=== PATIENT | female | born 1960 | race Caucasian/White ===

== ENCOUNTER 2019-07-01 00:32 | Emergency (ER) | payer MEDICARE ==
[~2019-07-01] VITALS: Ht 157.5 cm; Wt 55.8 kg
[2019-07-01 00:37] VITALS: BP 143/78
[2019-07-01] MEDS ORDERED: MOTRIN PO STA (00:59)
[2019-07-01] MEDS ORDERED: FLEXERIL PO STA (00:59)
[2019-07-01] MEDS ORDERED: NORCO 7.5MG PO STA (00:59)
[2019-07-01 01:00] VITALS: BP 127/73
--- NOTE | 2019-07-01 01:00 | ER.PDOC ---
General Chief Complaint: Back Pain/Injury Stated Complaint: SEVERE BACK PAIN Time seen by MD: 00:53 Source: patient History of Present Illness Initial Comments patient states she awoke yesterday with unrelenting pain between her shoulder blades (worse with UE movement) that started after wrestling her 93 pound basset hound the day before; there is no radiation of pain, no numbness weakness or tingling Timing/Duration: yesterday Severity/Quality: severe 1 - pain and spasm, worse right paraspinal Method of Injury: other (dragging 93 lb dog by collar across street) Associated Symptoms: denies symptoms Allergies: Coded Allergies: codeine (Unverified Allergy, Unknown, ITCH, 10/20/17) hydrocodone (Verified Adverse Reaction, Mild, ITCHING, 03/05/13) Past Medical History Medical History: diabetes, high cholesterol, hypertension Surgical History: cardiac cath, hysterectomy, stent Social History Alcohol Use: occassionally Drug Use: none Review of Systems Constitutional: no symptoms reported EENTM: no symptoms reported Respiratory: no symptoms reported Cardiovascular: no symptoms reported Gastrointestinal: no symptoms reported Musculoskeletal: see HPI, muscle pain (paraspinal pain/spasm, right worse) Skin: no symptoms reported Physical Exam General Appearance: No Apparent Distress Neck: Non-Tender, Normal Alignment Cardiovascular/Respiratory: Regular Rate, Rhythm, Normal Breath Sounds, No Respiratory Distress Gastrointestinal: Normal Bowel Sounds Back: No CVA Tenderness, No Vertebral Tenderness, Muscle Spasm (right paraspinal T5-T9 region) Extremities: No Evidence of Injury, Normal Range of Motion, Non-Tender Neuro/Psych: Alert, mood/effect nml, No Motor/Sensory Deficits Skin: Normal Color, Warm/Dry Results/Orders Results/Orders Orders - SENTHIL GARCÍA DO Hydrocodone/Acetaminophen (Henrietta 7.5mg) (07/01/19 00:59) Cyclobenzaprine Hcl (Flexeril) (07/01/19 00:59) Ibuprofen (Motrin) (07/01/19 00:59) Vital Signs Date Time Temp Pulse Resp B/P (MAP) Pulse Ox O2 Delivery O2 Flow Rate FiO2 07/01/19 00:37 98.3 92 18 96 07/01/19 00:37 98.3 92 18 07/01/19 00:37 98.3 92 18 143/78 (99) 96 Room Air Course Sepsis Screening Results: Posi: POSITIVE SEPSIS RISK Vitals & review Data Vital Sign - Last 24 Hours 07/01/19 07/01/19 07/01/19 00:37 00:37 00:37 Temp 98.3 98.3 98.3 Pulse 92 92 92 Resp 18 18 18 B/P (MAP) 143/78 (99) Pulse Ox 96 96 O2 Delivery Room Air Current Medications Medications (Trade) Dose Ordered Sig/Bhavik PRN Reason Start Time Stop Time Status Last Admin Acetaminophen/ Hydrocodone Bitart (Henrietta 7.5mg) 1 each STAT STAT 07/01/19 00:59 07/01/19 01:00 UNV Cyclobenzaprine HCl (Flexeril) 10 mg STAT STAT 07/01/19 00:59 07/01/19 01:00 UNV Ibuprofen (Motrin) 800 mg STAT STAT 07/01/19 00:59 07/01/19 01:00 UNV O2 Sat by Pulse Oximetry: 96 Departure Time of Disposition: 01:07 Disposition: 01 HOME, SELF-CARE Impression: Primary Impression: Thoracic back sprain Condition: Stable Patient Instructions: Back Exercises, Back Injury Prevention, Back Pain, Adult Referrals: ALMA BORRERO MD (PCP) PRIMARY CARE PROVIDER Additional Instructions: Follow up with Dr. Borrero next week. Rest. Ice to regions of pain 15 min/hour. Take your medication as prescribed when needed for pain/spasm. Return to ER if you experience severe/uncontrolled pain or any weakness to arms/hands or for any other emergent concerns. Duration or Time Spent with Pa: 15 min Problem Qualifiers Primary Impression: Thoracic back sprain Encounter type: initial encounter Qualified Codes: S23.9XXA - Sprain of unspecified parts of thorax, initial encounter SENTHIL GARCÍA DO Jul 01, 2019 01:00
[2019-07-01] MEDS ORDERED: MOTRIN ONE (01:02)
[2019-07-01] MEDS ORDERED: FLEXERIL ONE (01:02)
[2019-07-01] MEDS ORDERED: NORCO 7.5MG PO ONE (01:03)
[2019-07-01] MEDS ORDERED: ULTRAM ONE ×2 (01:06→01:07)
[2019-07-01] MEDS ORDERED: ULTRAM PO STA (01:06)
== END 2019-07-01 01:20 | disposition home or self-care (01) ==
LOC: ER 00:32
DX: S23.3XXA Sprain of ligaments of thoracic spine, initial encounter (principal); E11.9 Type 2 diabetes mellitus without complications; E78.00 Pure hypercholesterolemia, unspecified; I10 Essential (primary) hypertension; Z79.1 Long term (current) use of non-steroidal anti-inflammatories (NSAID); Z88.5 Allergy status to narcotic agent; Z90.710 Acquired absence of both cervix and uterus; W22.8XXA Striking against or struck by other objects, initial encounter; Y93.72 Activity, wrestling; Y92.89 Other specified places as the place of occurrence of the external cause; Y99.8 Other external cause status
CPT/HCPCS: 99284

== ENCOUNTER → 2021-01-06 | Outpatient (CLI) | payer MEDICARE ==
[~2021-01-06] MED LIST: ASPI-929 PO; LEXISCAN IV STA; LISI20TA21 PO; METF500T17 PO; ROSU20TA2 PO; VENL150C PO; VENL37.5 PO
--- NOTE | 2021-01-06 22:44 | STRESS ---
DATE OF SERVICE: 01/06/2021 DICTATOR NAME: TRENT PUGACHRISTINEThomas CARDIAC STRESS TEST INDICATION: Chest pain. FINDINGS: Baseline EKG shows normal sinus rhythm with left posterior fascicular block. Stress EKG shows normal sinus rhythm, unchanged from baseline. At the end of recovery, EKG shows normal sinus rhythm, unchanged from baseline. Baseline heart rate is noted to be 81 beats per minute and allison to 90 beats per minute during stress. At the end of recovery, the heart rate was noted to be 98 beats per minute. Baseline blood pressure was 123/70 and remained the same during stress. At the end of recovery, the blood pressure was 124/64. Blood pressure and heart rate were appropriate for stress. There were no significant symptoms noted during stress. There were no arrhythmias noted during stress. EKG portion of stress test is negative for myocardial ischemia. Nuclear images were obtained with a rest dose of 10.82 mCi technetium 99 sestamibi and stress dose of 32 mCi technetium 99 sestamibi. Nuclear images reveal homogeneous tracer distribution across all wall segments in both rest and stress images, with no evidence of myocardial ischemia or infarction. Left ventricular ejection fraction is 56%. EDV is 37 mL, ESV 16 mL. The left ventricle is normal in size. Gated motion images shows normal wall motion across all segments of the left ventricle. TID is 2.9. There is no evidence of diaphragmatic attenuation artifact. IMPRESSION: 1. Normal myocardial perfusion imaging with no evidence of myocardial ischemia or infarction. 2. Left ventricular ejection fraction of 56%. 3. This is a negative study. Daniel POSADA D.O. DR: RAYA TID: [id number] RECEIPT: [id number]
== END | disposition home or self-care (01) ==
LOC: RAD 09:25
PROVIDERS: ATTEND Internal Medicine Interventional Cardiology
DX: I10 Essential (primary) hypertension (principal); R07.9 Chest pain, unspecified
CPT/HCPCS: 78452; 93017; 93306; A9500; J2785

== ENCOUNTER → 2021-01-26 | Day surgery (SDC) | payer MEDICARE ==
[2021-01-22 09:09] VITALS: BP 128/71
--- NOTE | 2021-01-22 09:47 | PCM.EKG ---
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
[2021-01-22 09:55] LABS: BASOPHIL # 0.1 10^3/uL (0.0-0.1); BASOPHIL % 0.7 % (0.0-0.2); EOSINOPHIL # 0.2 10^3/uL (0.0-0.2); EOSINOPHIL % 2.9 % (0.0-5.0); LYMPHOCYTES # 2.95 10^3/uL1 (1.0-4.8); LYMPHOCYTES % 36.8 % (24.0-44.0); MEAN CORP HGB 32.2 pg (26-34); MONOCYTES # 0.5 10^3/uL (0.3-0.8); MONOCYTES % 5.9 % (5.0-12.0); NEUTROPHIL # 4.3 10^3/uL (1.8-7.7); NEUTROPHILS % 53.3 % (41.0-85.0); PLATELET COUNT 349 10^3/uL (150-400); RED CELL DISTRIBUTION WIDTH 13.7 % (11.5-14.5)
[2021-01-22 10:22] LABS: CALCIUM 9.2 mg/dL (8.4-10.5); CARBON DIOXIDE 26.2 mmol/L (20.0-32)
[~2021-01-26] VITALS: Ht 157.5 cm; Wt 55.8 kg
[2021-01-26] VITALS (7 sets, daily range): BP systolic 97–123; BP diastolic 59–69
[~2021-01-26] MED LIST changes: +CETACAINE SPRAY TP ONE; -LEXISCAN IV STA; +NS 1000ML 1,000 ML IV SCH; +SUBLIMAZE ONE
--- NOTE | 2021-01-26 12:36 | PCM.ECHO ---
APPROVED REPORT EXAM: Transesophageal echocardiogram with color flow Doppler. Patient Location: OUT-PATIENT Indications SEVERE TR PROCEDURE After obtaining informed consent, patient underwent transesophageal echo in the [facility] [employer]. Type of Sedation : Conscious Sedation Sedation was provided by anesthesiologist. Sedation was administered by Nursing Staff. Sedation was achieved with Versed, Fentanyl intravenously. Transesophageal probe was inserted and advanced into esophagus without difficulty by Dr. Moise. The KESHAWN was performed without complications. Throughout the procedure, the blood pressure, pulse oximetry, cardiac rhythm, and rate were monitored. The patient tolerated the procedure without adverse effects. Recovery from conscious sedation was uneventful and vital signs were stable. LEFT VENTRICLE The left ventricle is normal size. The left ventricular systolic function is normal. The left ventricular ejection fraction is within the normal range. There is normal left ventricular wall thickness. There is normal LV segmental wall motion. There is no ventricular septal defect visualized. No left ventricle thrombus noted on this study. LVEF is 60-65%. RIGHT VENTRICLE The right ventricle is normal size. The right ventricular systolic function is normal. There is normal right ventricular wall thickness. ATRIA The left atrium size is normal. No thrombus is visualized in the left atrium or appendage. The right atrium size is normal. The interatrial septum is intact with no evidence for an atrial septal defect. AORTIC VALVE The aortic valve is normal in structure. There is no aortic valvular stenosis. No aortic regurgitation is present. There is no aortic valvular vegetation. MITRAL VALVE The mitral valve is normal in structure. There is no mitral valve stenosis. Mild mitral regurgitation. There is no evidence of mitral valve vegetations. TRICUSPID VALVE The tricuspid valve is normal in structure. There is no tricuspid valve stenosis. Moderate to severe tricuspid regurgitation There is no tricuspid valve vegetations. PULMONIC VALVE Pulmonic valve is not well visualized. There is no pulmonic valvular stenosis. There is no pulmonic valvular regurgitation. GREAT VESSELS The aortic root is normal in size. No apparent thoracic aortic dissection. PERICARDIUM There is no pericardial effusion. CONCLUSION The left ventricular systolic function is normal. LVEF is 60-65%. Mild mitral regurgitation. Moderate to severe tricuspid regurgitation <Conclusion> The left ventricular systolic function is normal. LVEF is 60-65%. Mild mitral regurgitation. Moderate to severe tricuspid regurgitation Electronically signed by : TRENT MOISE. 01/26/2021 12:35:28
== END | disposition home or self-care (01) ==
LOC: SDC 06:30
PROVIDERS: ATTEND Internal Medicine Interventional Cardiology
DX: I08.1 Rheumatic disorders of both mitral and tricuspid valves (principal); I10 Essential (primary) hypertension; E78.5 Hyperlipidemia, unspecified; M19.90 Unspecified osteoarthritis, unspecified site; E11.9 Type 2 diabetes mellitus without complications; F17.210 Nicotine dependence, cigarettes, uncomplicated; I25.10 Atherosclerotic heart disease of native coronary artery without angina pectoris; J44.9 Chronic obstructive pulmonary disease, unspecified; I70.213 Atherosclerosis of native arteries of extremities with intermittent claudication, bilateral legs; Z86.73 Personal history of transient ischemic attack (TIA), and cerebral infarction without residual deficits; Z98.890 Other specified postprocedural states; Z98.51 Tubal ligation status; Z90.710 Acquired absence of both cervix and uterus; Z95.5 Presence of coronary angioplasty implant and graft; Z96.89 Presence of other specified functional implants; Z83.3 Family history of diabetes mellitus; Z82.49 Family history of ischemic heart disease and other diseases of the circulatory system; Z80.3 Family history of malignant neoplasm of breast; Z79.82 Long term (current) use of aspirin; Z79.01 Long term (current) use of anticoagulants; Z79.899 Other long term (current) drug therapy
CPT/HCPCS: 36415; 80053; 82948; 85025; 85610; 85730; 93005; 93312; 93325; 99152; J3010; C8925

== ENCOUNTER → 2021-02-02 | Outpatient (CLI) | payer MEDICARE ==
[~2021-02-02] MED LIST changes: -CETACAINE SPRAY TP ONE; -NS 1000ML 1,000 ML IV SCH; -SUBLIMAZE ONE
--- NOTE | 2021-02-03 00:44 | PRP ---
DATE OF PROCEDURE: 02/02/2021 DICTATOR NAME: TRENT LAUREN DO ARTERIAL DOPPLER ULTRASOUND OF BILATERAL LOWER EXTREMITIES INDICATION: Intermittent claudication. RIGHT LOWER EXTREMITY: The right common femoral artery has a peak systolic velocity of 85 cm per second with biphasic waveforms seen. The right profunda femoris artery has a peak systolic velocity of 63 cm per second with biphasic waveforms visualized. The right SFA has triphasic waveforms in the proximal segment and biphasic waveform in the [id number] segment with a peak systolic velocity of 88 cm per second. The right popliteal artery has biphasic waveforms with a peak systolic velocity of 54 cm per second. The right posterior tibial artery has biphasic waveform seen throughout with a peak systolic velocity of 54 cm per second. The right anterior tibial artery has biphasic waveform seen throughout with a peak systolic velocity of 52 cm per second. The right lower extremity ankle-brachial index is 1. LEFT LOWER EXTREMITY: The left common femoral artery has a peak systolic velocity of 191 cm per second with triphasic waveforms visualized. The left profunda femoris artery has a peak systolic velocity of 93 cm per second with triphasic waveforms seen. The left SFA has triphasic waveforms seen throughout with a peak systolic velocity of 116 cm per second. The left popliteal artery has biphasic waveform seen throughout with a peak systolic velocity of 56 cm per second. The left posterior tibial artery has biphasic waveform seen throughout with a peak systolic velocity of 51 cm per second. The left anterior tibial artery has biphasic waveform seen throughout with a peak systolic velocity of 76 cm per second. The left lower extremity ankle-brachial index is 0.9. IMPRESSION: 1. There is no evidence of hemodynamically significant stenosis in the right lower extremity. 2. There is no evidence of hemodynamically significant stenosis in the left lower extremity. 3. Bilateral ABIs are within normal limits. Daniel POSADA D.O. DR: RAYA EDWARDSD: [id number] RECEIPT: [id number]
== END | disposition home or self-care (01) ==
LOC: RAD 12:49
PROVIDERS: ATTEND Internal Medicine Interventional Cardiology
DX: I70.213 Atherosclerosis of native arteries of extremities with intermittent claudication, bilateral legs (principal)
CPT/HCPCS: 93922; 93925

== ENCOUNTER → 2021-02-05 | Outpatient (CLI) | payer MEDICARE ==
--- NOTE | 2021-02-07 06:48 | PRP ---
DATE OF PROCEDURE: 02/05/2021 DICTATOR NAME: TRENT LAUREN DO VENOUS MAPPING ULTRASOUND INDICATION: Chronic venous insufficiency. RIGHT LOWER EXTREMITY: The right greater saphenous vein measures 9 mm in its maximum diameter. Significant reflux is noted in the right GSV with maximum reflux of 0.6 seconds. The right small saphenous vein measures 4 mm in its maximum diameter. Significant reflux is noted in the right small saphenous vein with maximum reflux of 0.7 seconds. There is no evidence of deep venous thrombosis in the right lower extremity. LEFT LOWER EXTREMITY: The left greater saphenous vein measures 8 mm in its maximum diameter. Significant reflux is noted in the left GSV with maximum reflux of 1 second. The left small saphenous vein measures 6 mm in its maximum diameter. Significant reflux is noted in the left small saphenous vein with maximum reflux of 0.6 seconds. There is no evidence of deep venous thrombosis in the left lower extremity. IMPRESSION: 1. The right greater saphenous vein is dilated and displays pathological reflux. 2. The right small saphenous vein is normal sized but displays pathological reflux. 3. The left greater saphenous vein is normal sized but displays pathological reflux. 4. The left small saphenous vein is dilated and displays pathological reflux. 5. There is no evidence of deep venous thrombosis in the bilateral lower extremities. RECOMMENDATIONS: Conservative measures including the use of compression stockings, leg elevation and exercise are recommended if clinically indicated. Daniel POSADA D.O. DR: DOROTHEA TID: [id number] RECEIPT: [id number]
== END | disposition home or self-care (01) ==
LOC: RAD 12:56
PROVIDERS: ATTEND Internal Medicine Interventional Cardiology
DX: I86.8 Varicose veins of other specified sites (principal); I87.2 Venous insufficiency (chronic) (peripheral)
CPT/HCPCS: 93970

== ENCOUNTER → 2021-03-06 | Outpatient (CLI) | payer MEDICARE ==
[2021-03-06 16:21] LABS: MEAN CORP HGB 31.9 pg (26-34); RED CELL DISTRIBUTION WIDTH 13.1 % (11.5-14.5)
[2021-03-06 16:39] LABS: CARBON DIOXIDE 27.4 mmol/L (20.0-32)
== END | disposition home or self-care (01) ==
LOC: LAB 16:09
PROVIDERS: ATTEND Internal Medicine Cardiovascular Disease
DX: Z95.0 Presence of cardiac pacemaker (principal); I10 Essential (primary) hypertension; G45.9 Transient cerebral ischemic attack, unspecified
CPT/HCPCS: 36415; 80053; 85027; 85610

== ENCOUNTER → 2021-04-23 | Outpatient (CLI) | payer MEDICARE ==
--- NOTE | 2021-04-23 18:37 | DIREP ---
PROCEDURE:Digital Screening Mammogram TECHNIQUE:MLO and CC digital images of each breast are provided. Computer Assisted Detection (CAD) was utilized. COMPARISON:[facility], , MAMMO BILATERAL SCREENING, 12/13/2018, 12:04 PM. [facility], , MAMMO DIAGNOSTIC RT, 01/10/2019, 09:15 AM. INDICATIONS:SCREENING left pacemaker BREAST COMPOSITION:Scattered areas fibroglandular density. FINDINGS:There are no grouped microcalcifications, masses, or architectural distortions to suggest malignancy. There is no significant change as compared with the previous examination(s). IMPRESSION:No mammographic evidence of malignancy. RECOMMENDATIONS:Routine Screening Mammography per [employer] guidelines. OVERALL FINAL ASSESSMENT:BI-RADS 1 - Negative Mammogram Note: This facility participates in a mammography screening patient reminder system. Dictated by: Leonel Aguirre MD on 04/23/2021 at 06:31 PM
== END | disposition home or self-care (01) ==
LOC: RAD 15:01
PROVIDERS: ATTEND Internal Medicine
DX: Z12.31 Encounter for screening mammogram for malignant neoplasm of breast (principal)
CPT/HCPCS: 77067

== ENCOUNTER → 2022-03-11 | Outpatient (CLI) | payer MEDICARE ==
[~2022-03-11] MED LIST changes: -VENL150C PO; +VENL150C3 PO
[2022-03-11 13:47] LABS: BASOPHIL # 0.1 10^3/uL (0.0-0.1); BASOPHIL % 0.5 % (0.0-0.2); EOSINOPHIL # 0.2 10^3/uL (0.0-0.2); EOSINOPHIL % 1.6 % (0.0-5.0); LYMPHOCYTES # 3.38 10^3/uL1 (1.0-4.8); LYMPHOCYTES % 29.9 % (24.0-44.0); MEAN CORP HGB 32.5 pg (26-34); MONOCYTES # 0.7 10^3/uL (0.3-0.8); MONOCYTES % 6.4 % (5.0-12.0); NEUTROPHIL # 6.9 10^3/uL (1.8-7.7); NEUTROPHILS % 60.9 % (41.0-85.0); RED CELL DISTRIBUTION WIDTH 13.4 % (11.5-14.5)
[2022-03-11 14:23] LABS: CARBON DIOXIDE 24.2 mmol/L (20.0-32)
== END | disposition home or self-care (01) ==
LOC: LAB 13:30
PROVIDERS: ATTEND Internal Medicine
DX: I10 Essential (primary) hypertension (principal); E11.43 Type 2 diabetes mellitus with diabetic autonomic (poly)neuropathy
CPT/HCPCS: 36415; 80053; 80061; 83036; 84439; 84443; 85025